=== PATIENT | female | born 1965 | race Caucasian/White ===

== ENCOUNTER → 2016-05-26 | Outpatient (CLI) | payer BC ==
--- NOTE | 2016-05-29 11:06 | MR ---
EXAMINATION: MRI right shoulder HISTORY: Pain COMPARISON: None TECHNIQUE: Multiplanar and multisequence images obtained of the right shoulder without contrast. FINDINGS: There is a slight hook on the acromion which is otherwise concave. Mild acromioclavicular osteophytic changes are noted with mild periarticular edema. There is a trace celled acromial and mercer bdeltoid fluid. There is a small undersurface partial thickness tear of the supraspinatus tendon at the footplate. There is also possibly a minimal tear of the undersurface of the infraspinatus tendon at the footplate. The long head biceps tendon is present within the bicipital groove. Mildly increa sed signal is noted within the distal subscapularis tendon without an obvious tear. There is also mi ldly increased signal within the proximal long head biceps tendon. Moderate no suspicious bone marro w signal changes. No significant joint effusion. Glenohumeral articular cartilage thinning is noted. IMPRESSION: 1. Tiny partial-thickness tears of the supraspinatus and infraspinatus tendons at the footplate. 2. Mild subscapularis and long head biceps tendinopathy. 3. Acromioclavicular and glenohumeral osteoarthritic changes.
== END ==
LOC: MW.MRI 15:42
PROVIDERS: ATTEND Neurological Surgery
DX: M79.621 Pain in right upper arm (principal)
CPT/HCPCS: 73221-26-RT; 73221-RT